=== PATIENT | female | born 1970 | race Caucasian/White ===

== ENCOUNTER 2017-02-05 22:26 | Emergency (ER) | payer BC ==
[~2017-02-05] VITALS: Ht 162.6 cm; Wt 66.7 kg
[~2017-02-05 22:26] MED LIST: BENTYL20 MG PO; LORATADINE10 M2; LORAZEPAM1 MG; ULTRAM50 MG PO; XIFAXAN550 MG PO; XYLOCAINE VISC100 ML MM
[2017-02-05 23:42] VITALS: BP 126/98
== END 2017-02-05 23:42 | disposition home or self-care (01) ==
LOC: EME 22:26
DX: S05.92XA Unspecified injury of left eye and orbit, initial encounter (principal); W22.8XXA Striking against or struck by other objects, initial encounter; Y93.89 Activity, other specified
CPT/HCPCS: 99281; 99283